=== PATIENT | female | born 1970 | race Caucasian/White ===

== ENCOUNTER → 2019-06-24 | Day surgery (SDC) | payer OTHER ==
[~2019-06-24] MED LIST: ACETAMINOPHEN 325 MG TABLET PO PRN; ALBUTEROL SULFATE 2.5 MG/3 ML NEBU. NEB PRN; ATOR40TA PO; ATROPINE 0.5 MG/5 ML DISP.SYRIN. IV PRN; CALC500T30 PO; FEXO60TA25 PO; IV RINGERS SOLUTION,LACTATED 1,000 ML IV SCH; LEVO50TA5 PO; MULT-245 PO; ONDANSETRON PF 4 MG/2 ML VIAL. IV PRN; PROPOFOL 40 ML IV ONE; SERT100T8 PO; SUMA100T4 PO; VITA400C37 PO; diphenhydrAMINE 50 MG/ML VIAL IV PRN
[2019-06-24 08:05] LABS: U PREG PATIENT NEGATIVE (NEG)
[2019-06-24 09:48] VITALS: BP 126/77
--- NOTE | 2019-06-25 17:10 | PATHOLOGY ---
[facility] Accession Number: [id number] . 01 Material submitted: . PART A: colon - TRANSVERSE POLYP. Modifiers: transverse PART B: sigmoid colon - SIGMOID POLYP . 01 Clinical history: . None provided. . 02 Diagnosis: A. Colon biopsy, transverse colon polyp: - Diminutive tubular adenoma. . B. Colon biopsy, sigmoid colon polyp: - Tubular adenoma. ([facility] 06/25/2019) [facility] 06/25/2019 1525 Local . 02 Comment: There is no high-grade dysplasia or evidence of malignancy. ([facility] 06/25/2019) . 02 Electronically signed: . Vlad Reinoso MD, Pathologist NPI- [id number] . 01 Gross description: . A. Received in formalin labeled "Everts, Ashlee, transverse BX" is a 0.2 x 0.2 x 0.1 cm fragment of goel-brown soft tissue. The specimen is submitted entirely in A1. . B. Received in formalin labeled "Everts, Ashlee, sigmoid polyp" is a 0.2 x 0.2 x 0.1 cm fragment of goel-brown soft tissue. The specimen is submitted entirely in B1. ([facility]; 06/24/2019) [facility] 06/24/2019 1941 Local . 02 Pathologist provided ICD-10: D12.3, D12.5 . 02 CPT . 583528, [id number] Specimen Comment: A courtesy copy of this report has been sent to [phone], [phone] Specimen Comment: [phone] Specimen Comment: Report sent to / DR CORONA Performed at: [address], [place], [place] [id number] MD Andrea Steward MD Phone: [phone] Performed at: [address] [id number] MD Vlad Reinoso MD Phone: [phone]
== END | disposition home or self-care (01) ==
LOC: SURG 07:33
PROVIDERS: ATTEND Emergency Medicine
DX: Z12.11 Encounter for screening for malignant neoplasm of colon (principal); D12.3 Benign neoplasm of transverse colon; D12.5 Benign neoplasm of sigmoid colon; K57.30 Diverticulosis of large intestine without perforation or abscess without bleeding; F32.9 Major depressive disorder, single episode, unspecified; F41.9 Anxiety disorder, unspecified; E78.00 Pure hypercholesterolemia, unspecified; E03.9 Hypothyroidism, unspecified; Z72.89 Other problems related to lifestyle
CPT/HCPCS: 45378; 81025; 88305; J2704; J7120